=== PATIENT | female | born 1940 | race Caucasian/White ===

== ENCOUNTER → 2021-08-05 08:37 | Outpatient (BNVA) | payer MEDICARE, OTHER, SELFPAY | PROVIDERS: Visit Provider Psychiatry & Neurology Neurology | DX: R25.1 Tremor, unspecified (principal); R26.9 Unspecified abnormalities of gait and mobility | CPT/HCPCS: 99212 ==

== ENCOUNTER → 2022-06-15 11:37 | Outpatient (BNVA) | payer MEDICARE, OTHER, SELFPAY | PROVIDERS: PCP Internal Medicine; Visit Provider Psychiatry & Neurology Neurology | DX: G20 Parkinson's disease (principal); G62.9 Polyneuropathy, unspecified; Z96.651 Presence of right artificial knee joint | CPT/HCPCS: 99212 ==

== ENCOUNTER 2022-12-14 12:30 | Outpatient (AMB) | payer MEDICARE, OTHER, SELFPAY ==
--- NOTE | 2022-12-14 12:31 | MHC.OFFVIS ---
Intake Vital Signs 12/14/22 12:35 Height 5 ft 6 in Weight 169 lb 6 oz BMI 27.3 BP 126/80 Blood Pressure Location Rt brachial Position Sitting Pulse 81 Pulse Source Pulse Oximeter Pulse Oximetry (%) 98 Oxygen Delivery Method Room Air Intake Visit Reasons: f/u appt - Confirmed Intake Note: Patient presents for follow up appt. Allergies aspirin [From Percodan] Allergy (Verified 12/14/22 12:36) Agitated cephalexin [From Keflex] Allergy (Verified 12/14/22 12:36) Hives oxycodone [From Percodan] Allergy (Verified 12/14/22 12:36) Agitated sulfamethoxazole [From Bactrim] Allergy (Verified 12/14/22 12:36) Hives trimethoprim [From Bactrim] Allergy (Verified 12/14/22 12:36) Hives Medication List - Last Reconciled 12/14/22 by Neha Arriaza MD carbidopa-levodopa 25-100 mg (Sinemet) 1 tab PO BID cholecalciferol (vitamin D3) 125 mcg PO DAILY furosemide 20 mg PO DAILY losartan 50 mg PO DAILY melatonin 10 mg PO BEDTIME PRN omeprazole 40 mg PO DAILY tramadol 50 mg PO DAILY vitamin B complex (B Complex-Vitamin B12 tablet) 1 tab PO DAILY HPI HPI Comments History of Present Illness Details 82-year-old female comes for follow-up of her tremors. The tremors in her right hand does not affect her activities of daily living but more annoying. she has noticed a change in her handwriting. SHe had knee replacement on her Right October 12 2021 and still ahs issues. Now she is on tramadol which is helping.she also reports numbness in the right foot. Previous history-The tremors were mostly in the right UE postural and action. she also has history of chemo induced neuropathy which is well controlled but after she was started on Zoloft she noticed her tingling and numbness worsened in her feet and hands. She also has history of cervical spondylosis and lumbar spondylosis So she did not have any parkinsonian symptoms at that time so I wanted to follow-up with follow-up clinically. Today she says her right hand tremors are less intermittent and less intense but she complains mostly about her walking she has trouble getting off the chair getting up from a toilet she feels like Janis gandhi. He has difficulty doing her activities of daily living. She feels her neuropathy has worsened she denies any changes speech. She sleeps good. She still talks to a grief counselor. [facility] Medical History (Updated 06/15/22 @ 12:02 by Neha Arriaza MD) Arthritis Arthritis Cancer Cervical spondylosis Chemotherapy-induced neuropathy Depression GERD (gastroesophageal reflux disease) Heart disease HTN (hypertension) Lumbar spondylosis Surgical History History of rectal surgery Hx of appendectomy Hx of cholecystectomy Hx of colonoscopy Hx of gastric bypass Hx of resection of small bowel Hx of right knee surgery Family History (Updated 12/14/22 @ 12:40 by NIXON Harris) Mother Heart disease Varicose veins of calf Alzheimer disease Diverticulitis Father Heart disease Prostate cancer Social History Household Members: None Alcohol intake: current Alcohol intake frequency: does not drink Patient Tobacco Use Status: Former Tobacco user Physical Exam Vital Signs: Last Vital Signs Pulse 81 12/14/22 12:35 BP 126/80 12/14/22 12:35 Pulse Ox 98 12/14/22 12:35 Oxygen Delivery Method Room Air 12/14/22 12:35 BMI result Body Mass Index 27.3 Const Other: mild decreased blink and facial expression General: cooperative, healthy appearing and no acute distress Orientation/consciousness: patient oriented x3 HEENT Head: Yes normal to inspection and Yes normocephalic Eyes Pupils: Equal, round and reactive pupils present Neck Neck: Yes normal visual inspection and Yes full ROM Neuro Other: right hnad rest tremors 2 + cog wheel rigiidty - rUE FFM and foot taps decreased R>L Gait- decreased arm swing on right UE General: patient oriented x3 and no focal motor deficits Cranial nerves: Yes CN's II-XII intact bilaterally, Yes Equal, round and reactive pupils present and Yes Normal facial strength present Cognition (Neuro): normal cognition Gait exam (Neuro): Antalgic gait present Motor exam (neuro): 5/5 motor strength present throughout Deep tendon reflexes (DTR's): Right triceps reflex intensity grade: 1+, Left triceps reflex intensity grade: 1+, Rt Biceps (C5, C6): 1+, Left biceps reflex intensity grade: 1+, Right brachioradialis reflex intensity grade: 1+, Left brachioradialis reflex intensity grade: 1+, Right patellar reflex intensity grade: 1+ and Left patellar reflex intensity grade: 1+ Coordination: [id number] test normal Extrem Other: right knee swollen and in severe pain Assessment & Plan Assessment & Plan (1) Parkinson's disease: Code(s): G20 - Parkinson's disease Plan Discussed the diagnosis in detail Kennedy exercises discussed about calatrio I will trial her on sinemet 25/100 bid Medications: New carbidopa-levodopa 25-100 mg (Sinemet) 1 tab PO BID 60 tabs 2RF Coding Level of Care Code Est Pt Level 4 (18359) Diagnoses Parkinson's disease G20
[2022-12-14 12:35] VITALS: BP 126/80; PULSE 81; O2SAT 98; BMI 27.3
== END 2022-12-14 13:02 | disposition home or self-care (01) ==
PROVIDERS: Visit Provider Psychiatry & Neurology Neurology
DX: G20 Parkinson's disease (principal)
CPT/HCPCS: 99214

== ENCOUNTER → 2022-12-14 12:30 | Outpatient (BNVA) | payer MEDICARE, OTHER, SELFPAY | PROVIDERS: Visit Provider Psychiatry & Neurology Neurology | DX: G20 Parkinson's disease (principal); R20.0 Anesthesia of skin; Z96.651 Presence of right artificial knee joint | CPT/HCPCS: 99212 ==

== ENCOUNTER 2023-04-26 12:18 | Outpatient (AMB) | payer MEDICARE, OTHER, SELFPAY ==
--- NOTE | 2023-04-26 12:26 | MHC.OFFVIS ---
Intake Vital Signs 04/26/23 12:27 Height 5 ft 6 in Weight 151 lb 4 oz BMI 24.4 BP 126/72 Blood Pressure Location Rt brachial Position Sitting Respiration 16 Pulse 82 Pulse Source Pulse Oximeter Pulse Oximetry (%) 97 Oxygen Delivery Method Room Air Intake Visit Reasons: 4m follow up - Confirmed Intake Note: Pt presents to the office for a 4 month follow up for Parkinson's. Blocker Polishing Required: No Allergies aspirin [From Percodan] Allergy (Verified 04/26/23 12:26) Agitated cephalexin [From Keflex] Allergy (Verified 04/26/23 12:26) Hives oxycodone [From Percodan] Allergy (Verified 04/26/23 12:26) Agitated sulfamethoxazole [From Bactrim] Allergy (Verified 04/26/23 12:) Hives trimethoprim [From Bactrim] Allergy (Verified 04/26/23 12:) Hives Medication List - Last Reconciled 04/26/23 by Neha Arriaza MD carbidopa-levodopa 25-100 mg (Sinemet) 1 tab PO BID cholecalciferol (vitamin D3) 125 mcg PO DAILY furosemide 20 mg PO DAILY melatonin 10 mg PO BEDTIME PRN omeprazole 40 mg PO DAILY tramadol 50 mg PO DAILY vitamin B complex (B Complex-Vitamin B12 tablet) 1 tab PO DAILY HPI HPI Comments History of Present Illness Details 82-year-old female comes for follow-up of her tremors. The tremors in her right hand does not affect her activities of daily living but more annoying. she has noticed a change in her handwriting.she was taken off losartan as she has orthostatic hypotension.she sees Dr. Saldaña who is treating her OH. SHe had knee replacement on her Right October 12 2021 and still has issues. Now she is on tramadol which is helping. Previous history-The tremors were mostly in the right UE postural and action. she also has history of chemo induced neuropathy which is well controlled but after she was started on Zoloft she noticed her tingling and numbness worsened in her feet and hands. She also has history of cervical spondylosis and lumbar spondylosis So she did not have any parkinsonian symptoms at that time so I wanted to follow-up with follow-up clinically. Today she says her right hand tremors are less intermittent and less intense but she complains mostly about her walking she has trouble getting off the chair getting up from a toilet she feels like Janis gandhi. He has difficulty doing her activities of daily living. She feels her neuropathy has worsened she denies any changes speech. She sleeps good. She still talks to a grief counselor. [facility] Medical History Heart disease Depression GERD (gastroesophageal reflux disease) Arthritis HTN (hypertension) Lumbar spondylosis Cervical spondylosis Arthritis Chemotherapy-induced neuropathy Cancer Surgical History History of rectal surgery Hx of right knee surgery Hx of gastric bypass Hx of colonoscopy Hx of resection of small bowel Hx of cholecystectomy Hx of appendectomy Family History Mother Heart disease Varicose veins of calf Alzheimer disease Diverticulitis Father Heart disease Prostate cancer Social History Household Members: None Alcohol intake: current Alcohol intake frequency: does not drink Patient Tobacco Use Status: Former Tobacco user Physical Exam Vital Signs: Last Vital Signs Pulse 82 04/26/23 12:27 Resp 16 04/26/23 12:27 BP 126/72 04/26/23 12:27 Pulse Ox 97 04/26/23 12:27 Oxygen Delivery Method Room Air 04/26/23 12:27 BMI result Body Mass Index 24.4 Const Other: mild decreased blink and facial expression General: cooperative, healthy appearing and no acute distress Orientation/consciousness: patient oriented x3 HEENT Head: Yes normal to inspection and Yes normocephalic Eyes Pupils: Equal, round and reactive pupils present Neck Neck: Yes normal visual inspection and Yes full ROM Neuro Other: right hand rest tremors Normal tone FFM and foot taps decreased R>L- better than last visit Gait- decreased arm swing on right UE General: patient oriented x3 and no focal motor deficits Cranial nerves: Yes CN's II-XII intact bilaterally, Yes Equal, round and reactive pupils present and Yes Normal facial strength present Cognition (Neuro): normal cognition Gait exam (Neuro): Antalgic gait present Motor exam (neuro): 5/5 motor strength present throughout Deep tendon reflexes (DTR's): Right triceps reflex intensity grade: 1+, Left triceps reflex intensity grade: 1+, Rt Biceps (C5, C6): 1+, Left biceps reflex intensity grade: 1+, Right brachioradialis reflex intensity grade: 1+, Left brachioradialis reflex intensity grade: 1+, Right patellar reflex intensity grade: 1+ and Left patellar reflex intensity grade: 1+ Coordination: [id number] test normal Extrem Other: right knee swollen and in severe pain Assessment & Plan Assessment & Plan (1) Parkinson's disease: Code(s): G20 - Parkinson's disease Plan Discussed the diagnosis in detail Kenndey exercises discussed about calatrio sinemet 25/100 bid - will increase after her OH is stabilized Trial trihexyphenidyl 1mg bid consider [facility] for PH- patient is seeing Dr. Saldaña who will trial her on meds Medications: New trihexyphenidyl give with food (meal/snack) 1 mg (1/2 x 2 mg) PO BID 30 tabs 0RF Coding Level of Care Code Est Pt Level 4 (26612) Diagnoses Parkinson's disease G20
[2023-04-26 12:27] VITALS: BP 126/72; PULSE 82; RESP 16; O2SAT 97; BMI 24.4
== END 2023-04-26 13:01 | disposition home or self-care (01) ==
PROVIDERS: PCP Internal Medicine; Visit Provider Psychiatry & Neurology Neurology
DX: G20.A1 Parkinson's disease without dyskinesia, without mention of fluctuations (principal)
CPT/HCPCS: 99214

== ENCOUNTER → 2023-04-26 12:18 | Outpatient (BNVA) | payer MEDICARE, OTHER, SELFPAY | PROVIDERS: PCP Internal Medicine; Visit Provider Psychiatry & Neurology Neurology | DX: G20.A1 Parkinson's disease without dyskinesia, without mention of fluctuations (principal) | CPT/HCPCS: 99212 ==

== ENCOUNTER 2023-05-24 15:22 | Outpatient (AMB) | payer MEDICARE, OTHER, SELFPAY ==
--- NOTE | 2023-05-24 15:22 | A.OFFVIS_ITS ---
Intake Intake Visit Reasons: 1M f/u for Parkinson's Intake Note: Pt participates in telehealth (tel [phone]) visit for 1 month follow up for med adjustment for Parkinson's. She reports she started med increase x1.5 week and was doing well on it, but went back to original dosing after pharmacy refused to refill her script with new dose. Diving Supervisor Required: No Allergies sertraline Allergy (Intermediate, Verified 05/24/23 15:23) Anxiety aspirin [From Percodan] Allergy (Verified 04/26/23 12:26) Agitated cephalexin [From Keflex] Allergy (Verified 04/26/23 12:26) Hives oxycodone [From Percodan] Allergy (Verified 04/26/23 12:26) Agitated sulfamethoxazole [From Bactrim] Allergy (Verified 04/26/23 12:26) Hives trimethoprim [From Bactrim] Allergy (Verified 04/26/23 12:26) Hives Medication List - Last Reconciled 05/24/23 by Neha Arriaza MD carbidopa-levodopa 25-100 mg (Sinemet) 1 tab PO QID cholecalciferol (vitamin D3) 125 mcg PO DAILY furosemide 20 mg PO DAILY melatonin 10 mg PO BEDTIME PRN omeprazole 40 mg PO DAILY tramadol 50 mg PO DAILY trihexyphenidyl 1 mg (1/2 x 2 mg) PO BID vitamin B complex (B Complex-Vitamin B12 tablet) 1 tab PO DAILY HPI HPI Comments History of Present Illness Details 82-year-old female calls for follow up of tremor predominant parkinsons she is doing good on sinemet 25/100 qid Trihexyphenidyl 1mg bid SHe was started on midodrine 2.[address] Saldaña which has helped her dizziness. Previous history-The tremors were mostly in the right UE postural and action. she also has history of chemo induced neuropathy which is well controlled but after she was started on Zoloft she noticed her tingling and numbness worsened in her feet and hands. She also has history of cervical spondylosis and lumbar spondylosis So she did not have any parkinsonian symptoms at that time so I wanted to follow-up with follow-up clinically. Today she says her right hand tremors are less intermittent and less intense but she complains mostly about her walking she has trouble getting off the chair getting up from a toilet she feels like Janis gandhi. He has difficulty doing her activities of daily living. She feels her neuropathy has worsened she denies any changes speech. She sleeps good. She still talks to a grief counselor. [facility] Medical History (Updated 05/24/23 @ 16:01 by Neha Arriaza MD) Parkinson's disease with neurogenic orthostatic hypotension Heart disease Depression GERD (gastroesophageal reflux disease) Arthritis HTN (hypertension) Lumbar spondylosis Cervical spondylosis Arthritis Chemotherapy-induced neuropathy Cancer Surgical History History of rectal surgery Hx of right knee surgery Hx of gastric bypass Hx of colonoscopy Hx of resection of small bowel Hx of cholecystectomy Hx of appendectomy Family History Mother Heart disease Varicose veins of calf Alzheimer disease Diverticulitis Father Heart disease Prostate cancer Social History Household Members: None Alcohol intake: current Alcohol intake frequency: does not drink Patient Tobacco Use Status: Former Tobacco user Physical Exam Const General: cooperative Orientation/consciousness: patient oriented x3 Neuro Other: Mood stable Speech - normal General: patient oriented x3 Cognition (Neuro): normal cognition Assessment & Plan Assessment & Plan (1) Parkinson's disease with neurogenic orthostatic hypotension: Code(s): G90.3 - Multi-system degeneration of the autonomic nervous system Plan sinemet 25/100 qid - will increase after her OH is stabilized trihexyphenidyl 1mg bid continue midodrine 2.5mg tid Medications: New midodrine do not give last dose of day after 6PM or within 4 hrs of bedtime 2.5 mg PO TID Changed From carbidopa-levodopa 25-100 mg (Sinemet) 1 tab PO BID 60 tabs 6RF To carbidopa-levodopa 25-100 mg (Sinemet) 1 tab PO QID 120 tabs 6RF Refilled trihexyphenidyl give with food (meal/snack) 1 mg (1/2 x 2 mg) PO BID 30 tabs 4RF carbidopa-levodopa 25-100 mg (Sinemet) 1 tab PO QID 120 tabs 6RF trihexyphenidyl give with food (meal/snack) 1 mg (1/2 x 2 mg) PO BID 30 tabs 4RF Telehealth Telehealth Location of provider rendering services: practice address Location of patient: address on file Patient Identification confirmed using: Name, : Yes Telehealth method: voice only Patient verbally consented to treatment: Yes Patient verbally consented to billing insurance company: Yes Patient informed of any privacy concerns related to visit: Yes Coding Level of Care Code Tele Est Pt Level 4 (98634) Diagnoses Parkinson's disease with neurogenic orthostatic hypotension G90.3 Time Spent (min) 16
== END 2023-05-24 16:16 | disposition home or self-care (01) ==
LOC: HO.HSMS 15:22
PROVIDERS: PCP Internal Medicine; Visit Provider Psychiatry & Neurology Neurology
DX: G90.3 Multi-system degeneration of the autonomic nervous system (principal)
CPT/HCPCS: 99442

== ENCOUNTER → 2023-05-24 15:22 | Outpatient (BNVA) | payer MEDICARE, OTHER, SELFPAY | PROVIDERS: PCP Internal Medicine; Visit Provider Psychiatry & Neurology Neurology ==

== ENCOUNTER 2023-08-30 15:34 | Outpatient (AMB) | payer MEDICARE, OTHER, SELFPAY ==
--- NOTE | 2023-08-30 15:36 | MHC.OFFVIS ---
Vital Signs 08/30/23 15:38 Height 5 ft 6 in Weight 149 lb BMI 24.0 BP 112/60 Blood Pressure Location Rt brachial Position Sitting Pulse 93 Pulse Source Pulse Oximeter Pulse Oximetry (%) 98 Oxygen Delivery Method Room Air Intake Visit Reasons: 4 mo f/u- Parkinsons-CONF Intake Note: Patient presents for a 3 month fu- Parkinson's Potato Seed Cutter Required: No Accompanied by: Self / Same As Patient Allergies sertraline Allergy (Intermediate, Verified 08/30/23 15:41) Anxiety aspirin [From Percodan] Allergy (Verified 08/30/23 15:41) Agitated cephalexin [From Keflex] Allergy (Verified 08/30/23 15:41) Hives oxycodone [From Percodan] Allergy (Verified 08/30/23 15:41) Agitated sulfamethoxazole [From Bactrim] Allergy (Verified 08/30/23 15:41) Hives trimethoprim [From Bactrim] Allergy (Verified 08/30/23 15:41) Hives Medication List - Last Reconciled 08/30/23 by Neha Arriaza MD carbidopa-levodopa 25-100 mg (Sinemet) 1 tab PO QID cholecalciferol (vitamin D3) 125 mcg PO DAILY furosemide 20 mg PO DAILY PRN melatonin 10 mg PO BEDTIME PRN midodrine 2.5 mg PO TID omeprazole 40 mg PO DAILY tramadol 50 mg PO DAILY trihexyphenidyl 1 mg (1/2 x 2 mg) PO BID vitamin B complex (B Complex-Vitamin B12 tablet) 1 tab PO DAILY HPI Comments Details: 83-year-old female calls for follow up of tremor predominant parkinsons she is doing OK on sinemet 25/100 qid Trihexyphenidyl 1mg bid but still has tremors . SHe was started on midodrine 2.[address] Saldaña which has helped her dizziness- he stopped her BP medication. Previous history-The tremors were mostly in the right UE postural and action. she also has history of chemo induced neuropathy which is well controlled but after she was started on Zoloft she noticed her tingling and numbness worsened in her feet and hands. She also has history of cervical spondylosis and lumbar spondylosis So she did not have any parkinsonian symptoms at that time so I wanted to follow-up with follow-up clinically. Today she says her right hand tremors are less intermittent and less intense but she complains mostly about her walking she has trouble getting off the chair getting up from a toilet she feels like Janis gandhi. He has difficulty doing her activities of daily living. She feels her neuropathy has worsened she denies any changes speech. She sleeps good. She still talks to a grief counselor. [facility] Medical History Parkinson's disease with neurogenic orthostatic hypotension Heart disease Depression GERD (gastroesophageal reflux disease) Arthritis HTN (hypertension) Lumbar spondylosis Cervical spondylosis Arthritis Chemotherapy-induced neuropathy Cancer Surgical History History of rectal surgery Hx of right knee surgery Hx of gastric bypass Hx of colonoscopy Hx of resection of small bowel Hx of cholecystectomy Hx of appendectomy Family History Mother Heart disease Varicose veins of calf Alzheimer disease Diverticulitis Father Heart disease Prostate cancer Social History Household Members: None Alcohol intake: current Alcohol intake frequency: does not drink Patient Tobacco Use Status: Former Tobacco user Physical Exam Vital Signs: Last Vital Signs Pulse 93 08/30/23 15:38 BP 112/60 08/30/23 15:38 Pulse Ox 98 08/30/23 15:38 Oxygen Delivery Method Room Air 08/30/23 15:38 BMI result Body Mass Index 24.0 Const Other: mild decreased blink and facial expression General: cooperative, healthy appearing and no acute distress Orientation/consciousness: patient oriented x3 HEENT Head: Yes normal to inspection and Yes normocephalic Eyes Pupils: Equal, round and reactive pupils present Neck Neck: Yes normal visual inspection and Yes full ROM Neuro Other: right hand rest tremors Normal tone FFM and foot taps decreased R>L- better than last visit Gait- decreased arm swing on right UE General: patient oriented x3 and no focal motor deficits Cranial nerves: Yes CN's II-XII intact bilaterally, Yes Equal, round and reactive pupils present and Yes Normal facial strength present Cognition (Neuro): normal cognition Gait exam (Neuro): Antalgic gait present Motor exam (neuro): 5/5 motor strength present throughout Coordination: [id number] test normal Extrem Other: right knee swollen and in severe pain Assessment & Plan Assessment & Plan (1) Parkinson's disease with neurogenic orthostatic hypotension: Code(s): G90.3 - Multi-system degeneration of the autonomic nervous system Category: Medical Plan sinemet 25/100 qid - will increase after her OH is stabilized trihexyphenidyl 1mg bid continue midodrine 2.5mg tid I will refer her to Dr. Alfreda Dee MD,PhD for DBS Orders: Referrals Neurosurgery Referral G90.3 - Multi-system degeneration of the autonomic nervous system Medications: New midodrine do not give last dose of day after 6PM or within 4 hrs of bedtime 2.5 mg PO TID
[2023-08-30 15:38] VITALS: BP 112/60; PULSE 93; O2SAT 98; BMI 24.0
== END 2023-08-30 16:10 | disposition home or self-care (01) ==
LOC: HO.HSMS 15:35
PROVIDERS: PCP Internal Medicine; Visit Provider Psychiatry & Neurology Neurology
DX: G90.3 Multi-system degeneration of the autonomic nervous system (principal)
CPT/HCPCS: 99214

== ENCOUNTER → 2023-08-30 15:35 | Outpatient (BNVA) | payer MEDICARE, OTHER, SELFPAY | PROVIDERS: PCP Internal Medicine; Visit Provider Psychiatry & Neurology Neurology | DX: G90.3 Multi-system degeneration of the autonomic nervous system (principal) | CPT/HCPCS: 99212 ==

== ENCOUNTER 2024-03-21 10:52 | Outpatient (AMB) | payer MEDICARE, OTHER, SELFPAY ==
--- NOTE | 2024-03-21 11:06 | A.OFFVIS_ITS ---
Vital Signs 03/21/24 11:07 Height 5 ft 6 in Weight 149 lb BMI 24.0 BP 124/82 Blood Pressure Location Rt brachial Position Sitting Intake Visit Reasons: Follow Up Intake Note: Patient presents for follow up Allergies sertraline Allergy (Intermediate, Verified 03/21/24 11:09) Anxiety aspirin [From Percodan] Allergy (Verified 03/21/24 11:09) Agitated cephalexin [From Keflex] Allergy (Verified 03/21/24 11:09) Hives oxycodone [From Percodan] Allergy (Verified 03/21/24 11:09) Agitated sulfamethoxazole [From Bactrim] Allergy (Verified 03/21/24 11:09) Hives trimethoprim [From Bactrim] Allergy (Verified 03/21/24 11:09) Hives HPI Comments Details: 83 year old female with Orthostatic hypertension presents for a follow up, BP in clinic today is 124/82. She stopped taking her BP meds, she is taking Midodrine 2.5mg PO TID. She is taking the CD/LD- 25/100mg PO QID. She is aware of the BP dropping when she stands, and takes her time when standing she counts to 10 prior to taking a step to walk. She has not had any falls, uses her walker to go out and has an at home roller- aide. She understand the BP rises when she is sleeping, she takes the Midodrine as directed and she is more comfortable controlling with her BP changes now. Her mood is good, she is feels supported by family members, cooks, cleans and does laundry and completes all activities as she is able to tolerate with daughter and grand-daughther's help. She uses edible MJ Gummies if she needs them to sleep, bedtime is 10-12pm and awakes at 6-8 am. She makes 3-4 trips to the bathroom during the night. Takes natures made Gummies, (L-theanine, Jennifer, and Melatonin) takes 1/2 of it and sleeps within 20 min. She usually takes tylenol for the arthritis pain 650mg daily, R. prosthetic knee. Headaches only when the kids try to help with something, and stress her out. Mood is good most days, but can be stubborn, eats small, frequent meals due to the Gastric issues. She takes Vitamin C 500mg, Vitamin D, and B-complex, along with cranberry pills to prevent UTIs. She drives short distances. She bikes regularly, as tolerated, low intensity and resistance band exercises. Denies mental difficulties, dizziness, nausea, vertigo, vomiting. She has a surgical procedure schedules in May 2024 to remove the Hematoma, cystic- growth in her R. hand, 4th digit, metacarpal encompassing a vein. R. Knee was replaced years ago and she never felt it was the same. R>L right is larger than the Left. narrow gait, off balance leans to the left, R. knee replacement, [facility] Medical History Parkinson's disease with neurogenic orthostatic hypotension Heart disease Depression GERD (gastroesophageal reflux disease) Arthritis HTN (hypertension) Lumbar spondylosis Cervical spondylosis Arthritis Chemotherapy-induced neuropathy Cancer Surgical History History of rectal surgery Hx of right knee surgery Hx of gastric bypass Hx of colonoscopy Hx of resection of small bowel Hx of cholecystectomy Hx of appendectomy Family History Mother Heart disease Varicose veins of calf Alzheimer disease Diverticulitis Father Heart disease Prostate cancer Social History Household Members: None Alcohol intake: current Alcohol intake frequency: does not drink Patient Tobacco Use Status: Former Tobacco user Review of Systems Const All systems reviewed & are unremarkable except as noted in HPI and below Physical Exam Vital Signs: Last Vital Signs BP 124/82 03/21/24 11:07 BMI result Body Mass Index 24.0 Const General: cooperative, comfortable and no acute distress Nutritional Appearance: average body habitus Orientation/consciousness: patient oriented x3 Limitations: ambulation with walker HEENT Face and sinus: Yes face symmetric Eyes Pupils: Equal, round and reactive pupils present Neck Neck: Yes normal visual inspection, Yes full ROM (limited Extension on ROM.) and Yes supple Resp Effort & Inspection: normal respiratory effort and able to speak in complete sentences Neuro General: patient oriented x3, moves all extremities and CN's II-XI intact bilaterally Cranial nerves: Yes CN's II-XII intact bilaterally, Yes Facial sensation intact/muscles of mastication intact, Yes Equal, round and reactive pupils present, Yes Normal accommodation reflex present, Yes Normal facial strength present, Yes Midline tongue present, Yes Ability to bilaterally rotate head present and Yes Ability to bilaterally elevate shoulders present Cognition (Neuro): normal cognition Gait exam (Neuro): Other gait observations present (Narrow gait, off balance leaning to the left.) Motor exam (neuro): Normal motor muscle tone present throughout (weak muscle tone.), Abnormal motor strength present (R. hand tremor.) and Tremors during motor activity present Deep tendon reflexes (DTR's): Right triceps reflex intensity grade: 2+, Left triceps reflex intensity grade: 2+, Rt Biceps (C5, C6): 2+, Left biceps reflex intensity grade: 2+, Right brachioradialis reflex intensity grade: 2+, Left brachioradialis reflex intensity grade: 2+, Right patellar reflex intensity grade: 2+ and Left patellar reflex intensity grade: 2+ Coordination: [id number] test normal, rapid alternating movements of the distal upper extremity normal and rapid alternating movements of the distal lower extremity normal Psych Appearance: grossly normal Speech and movement: Normal speech and movement present Affect: normal affect Attitude: cooperative Thought process: Normal thought process present Thought content: Normal thought content present Insight: Good insight present (Psych) Judgement: Good judgement present (Psych) Assessment & Plan Assessment & Plan (1) Parkinson's disease with neurogenic orthostatic hypotension: Code(s): G90.3 - Multi-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 Continue taking the Sinemet 25-100mg QID per directions on an empty stomach with a cracker or a cookie is fine, no proteins for one hour before or after taking the Sinemet. Follow up in 2 months for Neurogenic Orhtostatic Hypertension, or if you have any concerns call the office. Coding Level of Care Code Est Pt Level 4 (94796) Complex EM visit Add On G2211 Diagnoses Parkinson's disease with neurogenic orthostatic hypotension G90.3
[2024-03-21 11:07] VITALS: BP 124/82; BMI 24.0
== END 2024-03-21 11:49 | disposition home or self-care (01) ==
PROVIDERS: PCP Internal Medicine; Visit Provider Psychiatry & Neurology Neurology
DX: G90.3 Multi-system degeneration of the autonomic nervous system (principal)
CPT/HCPCS: 99214; G2211

== ENCOUNTER → 2024-03-21 10:52 | Outpatient (BNVA) | payer MEDICARE, OTHER, SELFPAY | PROVIDERS: PCP Internal Medicine; Visit Provider Psychiatry & Neurology Neurology | DX: G90.3 Multi-system degeneration of the autonomic nervous system (principal) | CPT/HCPCS: 99212 ==

== ENCOUNTER 2024-05-25 10:19 | Outpatient (AMB) | payer MEDICARE, OTHER, SELFPAY ==
--- NOTE | 2024-05-25 10:19 | MHC.OFFVIS ---
Intake Visit Reasons: [phone], Follow Up Intake Note: patient presents for follow up Allergies sertraline Allergy (Intermediate, Verified 05/25/24 10:20) Anxiety aspirin [From Percodan] Allergy (Verified 05/25/24 10:20) Agitated cephalexin [From Keflex] Allergy (Verified 05/25/24 10:20) Hives oxycodone [From Percodan] Allergy (Verified 05/25/24 10:20) Agitated sulfamethoxazole [From Bactrim] Allergy (Verified 05/25/24 10:20) Hives trimethoprim [From Bactrim] Allergy (Verified 05/25/24 10:20) Hives Medication List - Last Reconciled 05/25/24 by Neha Arriaza MD carbidopa-levodopa 25-100 mg (Sinemet) 1 tab PO QID cholecalciferol (vitamin D3) 125 mcg PO DAILY furosemide 20 mg PO DAILY PRN melatonin 10 mg PO BEDTIME PRN midodrine 2.5 mg PO TID omeprazole 40 mg PO DAILY tramadol 50 mg PO DAILY trihexyphenidyl 1 mg (1/2 x 2 mg) PO BID vitamin B complex (B Complex-Vitamin B12 tablet) 1 tab PO DAILY HPI Comments Details: 83 year old female with Orthostatic hypertension calls for a follow up, - Her daughters Astrid , Eunice and her son Vasile are present during this visit.she reports increase in tremors in her right UE and her right foot is freezing.the tremors wakes her up from sleep. Her daughter describes an episode at night - when she had increased tremors, breathing hard.she denies any dreams she takes edible gummy at bedtime on and off. she has a gastric bypass pouch since 2002 - she has episodes of hypoglycemia( 40s) - was suggested to increase her glucose slowly . she has not checked her BP during these episodes.she feels better after she has a bowl of cereal . Family is concerned about her short term memory issues. She stopped taking her BP meds, she is taking Midodrine 2.5mg PO TID. She is taking the CD/LD- 25/100mg PO QID. She is aware of the BP dropping when she stands, and takes her time when standing she counts to 10 prior to taking a step to walk. She has not had any falls, uses her walker to go out and has an at home roller- aide. She understand the BP rises when she is sleeping, she takes the Midodrine as directed and she is more comfortable controlling with her BP changes now. Her mood is good, she is feels supported by family members, cooks, cleans and does laundry and completes all activities as she is able to tolerate with daughter and grand-daughter's help. She uses edible MJ Gummies if she needs them to sleep, bedtime is 10-12pm and awakes at 6-8 am. She makes 3-4 trips to the bathroom during the night. Takes natures made Gummies, (L-theanine, Jennifer, and Melatonin) takes 1/2 of it and sleeps within 20 min. She usually takes tylenol for the arthritis pain 650mg daily, R. prosthetic knee. Headaches only when the kids try to help with something, and stress her out. Mood is good most days, but can be stubborn, eats small, frequent meals due to the Gastric issues. She takes Vitamin C 500mg, Vitamin D, and B-complex, along with cranberry pills to prevent UTIs. She does not drive Denies mental difficulties, dizziness, nausea, vertigo, vomiting. She has a surgical procedure schedules in May 2024 to remove the Hematoma, cystic- growth in her R. hand, 4th digit, metacarpal encompassing a vein. R. Knee was replaced years ago and she never felt it was the same. R>L right is larger than the Left. narrow gait, off balance leans to the left, R. knee replacement, [facility] Medical History Parkinson's disease with neurogenic orthostatic hypotension Heart disease Depression GERD (gastroesophageal reflux disease) Arthritis HTN (hypertension) Lumbar spondylosis Cervical spondylosis Arthritis Chemotherapy-induced neuropathy Cancer Surgical History History of rectal surgery Hx of right knee surgery Hx of gastric bypass Hx of colonoscopy Hx of resection of small bowel Hx of cholecystectomy Hx of appendectomy Family History Mother Heart disease Varicose veins of calf Alzheimer disease Diverticulitis Father Heart disease Prostate cancer Social History Household Members: None Alcohol intake: current Alcohol intake frequency: does not drink Patient Tobacco Use Status: Former Tobacco user Physical Exam Const General: cooperative Orientation/consciousness: patient oriented x3 Neuro General: patient oriented x3 Telehealth Telehealth Telehealth Platform: Telephone Location of provider rendering services: practice address Location of patient: address on file Patient Identification confirmed using: Name, : Yes Telehealth method: voice only Patient verbally consented to treatment: Yes Patient verbally consented to billing insurance company: Yes Patient informed of any privacy concerns related to visit: Yes Minutes spent on Phone/Video with Pt.: 23 Assessment & Plan Assessment & Plan (1) Parkinson's disease with neurogenic orthostatic hypotension: Code(s): G90.3 - Multi-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 Continue taking the Sinemet 25-100mg QID per directions on an empty stomach with a cracker or a cookie is fine, no proteins for one hour before or after taking the Sinemet. 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
--- OUTSIDE RECORDS SUMMARY | 2024-05-25 12:20 | XMS_ITS ---
Author Name [facility] Organization Unknown History of Medication Use Medication Directions Dispensed Refills Start Date End Date Stat us traMADol HCl 50 MG Oral Tablet traMADol HCl 50 MG Oral Tablet QTY: 0 tablet Days: 0 Refills: 0 Written: 03/04/23 Patient Instructions: 03/06/2023 active Tylenol Oral Tablet Tylenol Oral Tablet QTY: 0 tablet Days: 0 Refills: 0 Written: 03/04/23 Patient Instructions: 03/06/2023 active Losartan Potassium 25 MG Oral Tablet Losartan Potassium 25 MG Oral Tablet QTY: 0 tablet Days: 0 Refills: 0 Written: 03/04/23 Patient Instructions: 03/06/2023 active Cyclobenzaprine HCl 10 MG Oral Tablet Cyclobenzaprine HCl 10 MG Oral Tablet QTY: 0 tablet Days: 0 Refills: 0 Written: 03/04/23 Patient Instructions: 03/06/2023 active Omeprazole 40 MG Oral Capsule Delayed Release Omeprazole 40 MG Oral Capsule Delayed Release QTY: 0 capsule Days: 0 Refills: 0 Written: 03/04/23 Patient Instructions: 03/06/2023 active Carbidopa-Levodopa 10-100 MG Oral Tablet Carbidopa-Levodopa 10-100 MG Oral Tablet QTY: 0 tablet Days: 0 Refills: 0 Written: 03/04/23 Patient Instructions: 03/06/2023 active Allergies Allergen Reaction Severity Comment Documented Date Source Statu s BACTRIM [facility] SERTRALINE HCL [facility] Problems Problem Status Onset Date Problem Type Date of Resoluti on Source Hypertensive disorder, systemic arterial (disorder) active 2023-03-04 ProblemAct [facility] Glaucoma (disorder) active 2023-03-04 ProblemAct [facility] Arthritis (disorder) active 2023-03-04 ProblemAct [facility] Cataract (disorder) active 2023-03-04 ProblemAct [facility] Pulmonary embolism (disorder) active 2023-03-04 ProblemAct [facility] Generalized anxiety disorder (disorder) active 2023-03-04 ProblemAct [facility] Acute myocardial infarction (disorder) active 2023-03-04 ProblemAct [facility] Heart disease (disorder) active 2023-03-04 ProblemAct [facility] MALIGNANT JESSICA COLON NOS active 2023-03-04 ProblemAct [facility] Depressive disorder (disorder) active 2023-03-04 ProblemAct [facility]
== END 2024-05-25 12:13 | disposition home or self-care (01) ==
LOC: HO.HSMS 10:19
PROVIDERS: PCP Internal Medicine; Visit Provider Psychiatry & Neurology Neurology
DX: G90.3 Multi-system degeneration of the autonomic nervous system (principal)
CPT/HCPCS: 98016

== ENCOUNTER → 2024-05-25 10:19 | Outpatient (BNVA) | payer MEDICARE, OTHER, SELFPAY | PROVIDERS: PCP Internal Medicine; Visit Provider Psychiatry & Neurology Neurology ==

== ENCOUNTER 2024-10-31 14:03 | Outpatient (AMB) | payer MEDICARE, OTHER, SELFPAY ==
[2024-10-31 14:06] VITALS: BP 100/82; BMI 24.2
--- NOTE | 2024-10-31 14:06 | A.OFFVIS_ITS ---
Vital Signs 10/31/24 14:06 Height 5 ft 6 in Weight 150 lb BMI 24.2 BP 100/82 Blood Pressure Location Rt brachial Position Sitting Intake Visit Reasons: Follow Up Intake Note: Patient presents for follow up med trial mirtazapine Allergies sertraline Allergy (Intermediate, Verified 10/31/24 14:08) Anxiety aspirin (From Percodan) Allergy (Verified 10/31/24 14:08) Agitated cephalexin (From Keflex) Allergy (Verified 10/31/24 14:08) Hives oxycodone (From Percodan) Allergy (Verified 10/31/24 14:08) Agitated sulfamethoxazole (From Bactrim) Allergy (Verified 10/31/24 14:08) Hives trimethoprim (From Bactrim) Allergy (Verified 10/31/24 14:08) Hives Medication List - Last Reconciled 10/31/24 by Neha Arriaza MD carbidopa-levodopa 25-100 mg (Sinemet) 1 tab PO QID cholecalciferol (vitamin D3) 125 mcg PO DAILY furosemide 20 mg PO DAILY PRN melatonin 10 mg PO BEDTIME PRN midodrine 2.5 mg PO TID mirtazapine 7.5 mg PO BEDTIME omeprazole 40 mg PO DAILY tramadol 50 mg PO DAILY trihexyphenidyl 1 mg (1/2 x 2 mg) PO BID vitamin B complex (B Complex-Vitamin B12 tablet) 1 tab PO DAILY HPI Comments Details: 83 year old female with Parkinsons disease comes for a follow up, - Her grand daughter Hope accompanies her today she is sleeping better with Mirtazapine 7,5 mg qhs and mood is better. Her tremors are better. she has a gastric bypass pouch since 2002 - she has episodes of hypoglycemia( 40s) - was suggested to increase her glucose slowly . she has not checked her BP during these episodes.she feels better after she has a bowl of cereal . Family is concerned about her short term memory issues. She stopped taking her BP meds, she is taking Midodrine 2.5mg PO TID. She is taking the CD/LD- 25/100mg PO QID. Her mood is good, she is feels supported by family members, cooks, cleans and does laundry and completes all activities as she is able to tolerate with daughter and grand-daughter's help. She usually takes tylenol for the arthritis pain 650mg daily, R. prosthetic knee. She does not drive No falls.she is independant in all her ADLs. [facility] Medical History Parkinson's disease with neurogenic orthostatic hypotension Heart disease Depression GERD (gastroesophageal reflux disease) Arthritis HTN (hypertension) Lumbar spondylosis Cervical spondylosis Arthritis Chemotherapy-induced neuropathy Cancer Surgical History History of rectal surgery Hx of right knee surgery Hx of gastric bypass Hx of colonoscopy Hx of resection of small bowel Hx of cholecystectomy Hx of appendectomy Family History Mother Heart disease Varicose veins of calf Alzheimer disease Diverticulitis Father Heart disease Prostate cancer Social History Household Members: None Alcohol intake: current Alcohol intake frequency: does not drink Patient Tobacco Use Status: Former Tobacco user Physical Exam Vital Signs: Last Vital Signs BP 100/82 10/31/24 14:06 BMI result Body Mass Index 24.2 HEENT Face and sinus: Yes face symmetric Eyes Pupils: Equal, round and reactive pupils present Neck Neck: Yes normal visual inspection, Yes full ROM (limited Extension on ROM.) and Yes supple Resp Effort & Inspection: normal respiratory effort and able to speak in complete sentences Neuro Other: right UE rets tremors - moderate amplitude gait - mild slowness- decreased arm swing R>L General: moves all extremities and CN's II-XI intact bilaterally Cranial nerves: Yes CN's II-XII intact bilaterally, Yes Facial sensation intact/muscles of mastication intact, Yes Equal, round and reactive pupils present, Yes Normal accommodation reflex present, Yes Normal facial strength present, Yes Midline tongue present, Yes Ability to bilaterally rotate head present and Yes Ability to bilaterally elevate shoulders present Cognition (Neuro): normal cognition Gait exam (Neuro): Other gait observations present (Narrow gait, off balance leaning to the left.) Motor exam (neuro): Normal motor muscle tone present throughout (weak muscle tone.), Abnormal motor strength present (R. hand tremor.) and Tremors during motor activity present Coordination: [id number] test normal, rapid alternating movements of the distal upper extremity normal and rapid alternating movements of the distal lower extremity normal Psych Appearance: grossly normal Speech and movement: Normal speech and movement present Affect: normal affect Attitude: cooperative Thought process: Normal thought process present Thought content: Normal thought content present Insight: Good insight present (Psych) Judgement: Good judgement present (Psych) Assessment & Plan Assessment & Plan (1) Parkinson's disease with neurogenic orthostatic hypotension: Code(s): G90.3 - Multi-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 Continue taking the Sinemet 25-100mg QID per directions on an empty stomach with a cracker or a cookie is fine, no proteins for one hour before or after taking the Sinemet. Trihexyphenidyl 1/2 tab bid mirtazepine 7.5 mg qhs for sleep and depression Contact [facility] for [employer] DESIGN[employer] services Coding Level of Care Code Est Pt Level 4 (57795) Complex EM visit Add On G2211 Diagnoses Parkinson's disease with neurogenic orthostatic hypotension G90.3
--- OUTSIDE RECORDS SUMMARY | 2024-10-31 17:08 | XMS_ITS | Clinical Summary ---
Author Organization [facility] Address [address] [place] [address] Phone Care Team Providers Care Yarn Dumper Name Role Phone Hyacinth Bashir MD Primary Care Provider [phone] Allergies Active Allergy Reactions Criticality Noted Date Comments Cephalexin High 02/20/2021 Other Reaction(s): Hives/Urticaria Nsaids (Non-Steroidal Anti-Inflammatory Drug) GI intolerance 10/07/2022 Sertraline Medium 11/08/2020 Tremors, fatigue, insomnia, neuropathy Sulfamethoxazole-Trimeth oprim High 02/20/2021 Other Reaction(s): Hives/Urticaria Medications furosemide (LASIX) 20 mg tablet TAKE 1 TABLET BY MOUTH EVERY DAY 90 tablet 3 4 Active omeprazole (PriLOSEC) [address] capsule TAKE 1 CAPSULE BY MOUTH EVERY DAY 90 capsule 1 4 Active carbidopa-levodo pa (SINEMET) 25-100 mg per tablet Take 1 Tablet by mouth 4 times daily. 4 Active omeprazole (PriLOSEC) [address] capsule Take 1 capsule (40 mg total) by mouth 1 (one) time each day. 4 Active UNABLE TO FIND Take by mouth 1 (one) time each day. Psyllium 55.6 % Powder Active traMADoL (ULTRAM) 50 mg tablet Take 1 Tablet by mouth 2 times daily as needed for Pain. 3 Active UNABLE TO FIND [place]-3 Krill Oil 1000 MG Cap, Take 1,000 mg by mouth daily. Active acetaminophen (TYLENOL) 325 mg tablet Take 2 tablets (650 mg total) by mouth 1 (one) time each day. 2 Active cholecalciferol (VITAMIN D-3) 5,000 Units tablet Take 125 mcg by mouth daily. Active cranberry fruit 450 mg tablet Take 450 mg by mouth daily. 3 Active MULTIVITAMIN ORAL Take 1 tablet by mouth 1 (one) time each day. 3 Active ascorbic acid, vitamin C, 500 mg capsule Take 1 Cap by mouth daily. Active biotin 1 mg tablet Take 1 tablet (1 mg total) by mouth 1 (one) time each day. Active B complex tablet Take 1 tablet by mouth 1 (one) time each day. Active melatonin 10 mg tablet Take 1 tablet (10 mg total) by mouth at bedtime. Active midodrine (PROAMATINE) 2.5 mg tabletIndication s:Orthostatic hypotension TAKE 1 TABLET BY MOUTH 3 TIMES DAILY FOR 30 DAYS. 270 tablet 3 5 Active mirtazapine (REMERON) 7.5 mg tablet Take 1 tablet (7.5 mg total) by mouth. at bedtime 5 Active DULoxetine (CYMBALTA) [address] capsule Take 1 capsule (30 mg total) by mouth 1 (one) time each day. Do not crush or chew. 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 She will get a shooting pain that is a 9 or 10/10. If she is sitting for a long time she will experience some back pain. She states she has no choice but to sit most of the time because of her other medical issues, including orthostatic hypotension, recent diagnosis of Parkinson's, shortness of breath with ambulating, right knee pain s/p total knee replacement October 12, 2021. She states she was supposed to have a knee replacement about 10 years ago, but circumstances and her family did not allow her to have surgery at that time. She was walking with her right lower extremity distorted, 24 degree angle in the lower leg where she was almost knock kneed, walking on the side of her foot for many years while awaiting her knee replacement surgery. At times she notes that the right foot will curl up/cramp. She states she gets pain on the medial and lateral right knee, behind the knee feels tight. She has seen orthopedics and had a second opinion, they tried using a knee brace, but the bars on the sides push on her area of pain and is not comfortable to wear. Her knee surgery did straighten the leg so she can walk a little better, however she does not feel it helped her knee pain. She was recently seen for physical therapy and given an orthotic shoe lift for the left shoe, they told her they could not continue the exercises she needed because of her Parkinson's disease. Patient had lumbar spine MRI 923 at [facility] that showed L3-4, L4-5 DJD and ligamentum flavum hypertrophy, L4-5 central disc bulging, no significant stenosis. Trace anteriolisthesis L5-S1. Report mentions right lateral recess stenosis at L5-S1, I did not see any significant nerve root compression or stenosis. Ms. Hernandez's right posterior leg pain radiating from the heel up to the buttock, tenderness over the right buttock and SI joint, she could have a component of pain from piriformis syndrome. We talked about stretching exercises she can do at home, she does not want to try physical therapy for SI joint pain and piriformis syndrome. We talked about acupuncture, she is interested in seeing Dr. Garcia again who she saw in the past for her knee. If needed possibly also trying right SI joint injection. I did not see any significant right-sided nerve root compression on her lumbar spine MRI, but I will review the films with Dr. Grimaldo and see if she recommends any surgical intervention. ADDENDUM 04/08/2023 4 PM: I reviewed patient's MRI lumbar spine with Dr. Grimaldo, she agrees that there is no nerve root compression, right lateral recess stenosis L5-S1. I called patient to give her an update, Dr. Grimaldo is not recommending surgical intervention at this time. Patient states she has been thinking about the physical therapy, would like to try it, we found a location close to her, information provided, PT order faxed over to [facility]. All questions answered. I asked her to call in a month or 2 with an update. Onychomycosis due to dermatophyte 04/08/2023 Orthostatic hypotension 03/26/2023 Overview (04/11/2024): Last Assessment & Plan: Patient is doing better with the discontinuation of the NIKKI inhibitor but she still complains of positional lightheadedness and is being scheduled for additional doses of Sinemet and a new medication which she has been told by her neurologist is good to drop her blood pressure. I think we should just proactively start 2.5 mg of midodrine 3 times daily prevent her from having any episodes of syncope or presyncope. She has been told that she may need to have this dose increased depending upon the effect of the additional Sinemet and her Parkinson meds. She is to give us a call if the symptoms worsen. As far as her blood sugar dropping she needs to talk to her primary team she has had a gastric bypass done and I suspect there is issues with absorption but unfortunately I am not able to sort those out right now and they need to be addressed by her primary team Angiodysplasia of colon with hemorrhage 10/08/19 23 Parkinson disease ([facility] V24, [facility] V28) 07/2022 Status post total right knee replacement 022 Murmur 09/22/2021 Overview (04/11/2024): Last Assessment & Plan: because of the orthostasis. Patient is mild aortic stenosis not contributing to orthostasis. Primary hypertension 09/22/2021 Overview (04/11/2024): Last Assessment & Plan: The patient has a history of primary hypertensionStopping her losartan secondary to the orthostasis. Shortness of breath 09/22/2021 Hyperlipidemia 11/29/2017 Limb pain 11/29/2017 Malignant tumor of colon ([facility] V24, [facility] V 28) 11/29/2017 Rash 11/29/2017 Urinary tract infection 11/24/2016 UTI symptoms 11/24/2016 Anemia 10/19/2016 Candidiasis 04/17/2016 Fatigue 03/28/2015 Chest pain 12/06/2014 Depression 12/06/2014 Joint pain, knee 12/06/2014 Localized osteoarthrosis, lower leg 04/19/2014 Edema 01/09/2014 Peripheral neuropathy 01/09/2014 Assessment & Plan (05/29/2024 12:52 PM EST): 2005 - s/p chemo. Esophageal reflux 08/09/2013 Insomnia 10/13/2012 Abnormal weight gain 06/25/2011 Backache 06/23/2011 Disc degeneration, lumbar 06/02/2010 Encounters Date Type Department Care Team Description 10/19/2024 12:45 PM EDT Office Visit Internal Medicine [address] [phone] Hyacinth Bashir MD Anemia, unspecified type (Primary Dx); Mixed hyperlipidemia; Need for vaccination against Streptococcus pneumoniae; Primary hypertension; Depression, unspecified depression type; Parkinson's disease, unspecified whether dyskinesia present, unspecified whether manifestations fluctuate ([facility] V24, [facility] V28) 10/18/2024 Telephone Internal Medicine [address] [phone] Enrique Limon [place] Appointment Reminder from Last 3 Months Immunizations Name Administration Dates Next Due Influenza trivalent, 0.5mL ( Fluad) 65yo and older 02/08/2019,02/04/2018,02/25/2017,04/06,03/17/2016,02/18/2015,02/22/2014 Influenza trivalent, 0.5mL, preservative free (Fluarix; FluLaval; Fluzone) ages 6mo and older (Afluria) 3 years and older 02/19/2020 Influenza, Unspecified 02/19/2022 Pfizer SARS-CoV-2 COVID-19, mRNA, LNP-S, preservative free 02/19/2022 Pneumococcal conjugate 13 va lent (Prevnar 13, PCV13) 2mo and older 04/16/2016 Pneumococcal conjugate 20 va lent (Prevnar 20, PCV 20) 2mo and older 10/19/2024 Pneumococcal polysaccharide 23 valent (Pneumovax 23) 2yo and older 04/16/2015,02/02/2007 Surgical History Surgery Date Site/Laterality Comments HYSTERECTOMY PROCEDURE: HISTORICAL HYSTERECTOMY SHOULDER SURGERY PROCEDURE: HISTORICAL SHOULDER SURGERY; COMMENT: Rotator cuff repair OTHER SURGICAL HISTORY 05/2005 PROCEDURE: NE LAPAROSCOPY COLECTOMY PARTIAL W/ANASTOMOSIS; COMMENT: Colon cancer TOTAL KNEE ARTHROPLASTY 10/12/2021 Right PROCEDURE: HISTORICAL TOTAL KNEE REPLACE OTHER SURGICAL HISTORY 2002 PROCEDURE: HISTORY OTHER; COMMENT: Gastric bypass Medical History Medical History Date Comments Essential hypertension DX:Essent ial hypertension Orthostatic hypotension 03/26/2023 DX:Ortho static hypotension Hyperlipidemia 11/29/2017 DX:Hyperlipidemi a Esophageal reflux 08/09/2013 DX:Esophageal reflux Malignant tumor of colon ( S/HCC V24, [facility] V28) 11/29/2017 DX:Malignant tumor of colon (HCC) Parkinson disease ([facility] V 24, [facility] V28) 09/09/2022 DX:Parkinson disease ([facility]) Peripheral neuropathy 01/09/2014 DX:Periphe ral neuropathy Depression 12/06/2014 DX:Depression Status post total right knee replacement 11/04/2021 DX:Status post total right k nee replacement Rheumatoid arthritis ([facility] V24, [facility] V28) DX:Rheumatoid arthritis ([facility] ) Family History Medical History Relation Name Comments Heart attack Father Heart attack Mother Hyperlipidemia Mother Other: atrial fibrillation Mother Relation Name Status Comments Father Mother Social History Tobacco Use Types Packs/Day Years Used Date Smoking Tobacco: Former Cigarettes 0.3 61 S tarted: 11/08/1963 Smokeless Tobacco: Never Tobacco Cessation:Counseling Given: Not Answered Alcohol Use Standard Drinks/Week Comments No 0 (1 standard drink = 0.6 oz pur e alcohol) Comments Unknown Sex and Gender Information Value Date Recorded Sex Assigned at Female 06/02/2024 6:49 AM EST Legal Sex Female 6:47 PM EST Gender Identity Female 06/02/2024 6:49 AM EST Sexual Orientation Straight 06/02/2024 6: 49 AM EST Obstetrics History Last Filed Vital Signs Vital Sign Reading Time Taken Comments Blood Pressure 144/84 10/19/2024 12:49 PM EDT Pulse 85 10/19/2024 12:49 PM EDT Temperature 36.9 C (98.4 F) 10/19/2024 12:49 PM EDT Respiratory Rate 16 06/02/2024 8:18 AM EST Oxygen Saturation 98% 10/19/2024 12:49 PM EDT Inhaled Oxygen Concentration - - Weight 67.1 kg (148 lb) 10/19/2024 12:49 PM EDT Height 162.6 cm (5' 4 ) 10/19/2024 12:49 PM EDT Body Mass Index 25.4 10/19/2024 12:49 PM EDT Plan of Treatment Upcoming Encounters Date Type Department Care Team (Late st Contact Info) Description 03/26/2025 11:30 AM EST Office Visit Internal Medicine - [place] [address] [facility] [address] [place] [phone] Hyacinth Bashir MD [address] [facility] [facility] [address] [place] [phone] Health Maintenance Due Date Last Done Comments DTaP,Tdap,and Td Vaccines (1 - Tdap) 1959 Zoster Vaccines (1 of 2) 1959 Medicare Annual Wellness Visit 04/11/2022 Osteoporosis Screening (Bone Density Screening) 04/11/2022 Social Influencers of Health Screening 04/11/2022 COVID-19 Vaccine (7 - Pfizer risk season) 2024 02/20/2024, 02/26/2023, 02/19/2022, Additional history exists Depression Screening 01/16/2025 01/17/2024 Falls Risk Assessment 01/16/2025 01/17/2024 Cholesterol Screening (Lipid Panel) 07/31/2025 07/31/2020 Hypertension/CHF/CAD Annual BMP Blood Test 10/19/2025 10/19/2024, 01/17/2024, 01/17/2024 Influenza Vaccine Completed 02/20/2024, , 02/19/2022, Additional history exists RSV Immunization Adult Patients Completed 03/13/2024, 02/26/2023 Pneumococcal Vaccine: 50+ Years Completed 10/19/2024, 04/16/2016, 04/16/2015, Additional history exists HIB Vaccines Aged Out No longer eligi ble based on patient's age to complete this topic HPV Vaccines Aged Out No longer eligi ble based on patient's age to complete this topic Hepatitis A Vaccines Aged Out No long er eligible based on patient's age to complete this topic Hepatitis B Vaccines Aged Out No long er eligible based on patient's age to complete this topic IPV Vaccines Aged Out No longer eligi ble based on patient's age to complete this topic MMR Vaccines Aged Out No longer eligi ble based on patient's age to complete this topic Meningococcal ACWY Vaccine Aged Out N o longer eligible based on patient's age to complete this topic Meningococcal B Vaccine Aged Out No l onger eligible based on patient's age to complete this topic RSV Immunization Patients Under 20 months Aged Out No longer eligible based on patient's age to complete this topic Varicella Vaccines Aged Out No longer eligible based on patient's age to complete this topic Procedures Procedure Name Priority Date/Time Associated Diagnosis Comments COMPREHENSIVE METABOLIC PANEL Routine 10/19/2024 1:22 PM EDT Anemia, unspecified type Mixed hyperlipidemia DEPRESSION SCREENING Routine 01/17/2024 FALLS RISK ASSESSMENT Routine 01/17/2024 LIPID PANEL Routine 07/31/2020 from Last 3 Months or Most Recently Relevant to Health Maintenance Results * Comprehensive metabolic panel (10/19/2024 1:22 PM EDT) Sodium 137 133 - 145 mmol/L LAB CHEMISTRY METHOD 10/19/2024 3:[address] [facility] Potassium 4.2 3.5 - 5.5 mmol/L LAB CHEMISTRY METHOD 10/19/2024 3:[address] [facility] Chloride 103 96 - 110 mmol/L LAB CHEMISTRY METHOD 10/19/2024 3:[address] [facility] CO2 28 21 - 32 mmol/L LAB CHEMISTRY METHOD 10/19/2024 3:[address] [facility] Anion Gap 6 3 - 11 LAB CHEMISTRY METHOD 10/19/2024 3:[address] [facility] Glucose 98 70 - 100 mg/dL LAB CHEMISTRY METHOD 10/19/2024 3:[address] [facility] BUN 13 5 - 25 mg/dL LAB CHEMISTRY METHOD 10/19/2024 3:[address] [facility] Creatinine 0.71 0.50 - 1.10 mg/dL LAB CHEMISTRY METHOD 10/19/2024 3:[address] [facility] eGFR 85 >=60 mL/min/1. 73m2 LAB CHEMISTRY METHOD 10/19/2024 3:[address] [facility] Comment:Calculation based on the Chronic Kidney Disease Epidemiology Collaboration (CKD-EPI) equation refit without adjustment for race. BUN/Creatinine Ratio 18.3 LAB CHEMISTRY METHOD 10/19/2024 3:[address] [facility] Calcium 8.9 8.5 - 10.5 mg/dL LAB CHEMISTRY METHOD 10/19/2024 3:[address] [facility] AST (SGOT) 18 10 - 42 unit/L LAB CHEMISTRY METHOD 10/19/2024 3:[address] [facility] ALT (SGPT) 13 10 - 60 unit/L LAB CHEMISTRY METHOD 10/19/2024 3:[address] [facility] Alkaline Phosphatase 112 42 - 121 unit/L LAB CHEMISTRY METHOD 10/19/2024 3:16 PM EDT [facility] Total Protein 7.0 6.0 - 8.0 g/dL LAB CHEMISTRY METHOD 10/19/2024 3:16 PM EDT [facility] Albumin 3.8 3.2 - 5.0 g/dL LAB CHEMISTRY METHOD 10/19/2024 3:16 PM EDT [facility] Total Bilirubin 0.4 0.0 - 1.4 mg/dL LAB CHEMISTRY METHOD 10/19/2024 3:16 PM EDT [facility] Blood Venous blood specimen / Unknown Venipuncture / Unknown 10/19/2024 1:22 PM EDT 10/19/2024 1:22 PM EDT Hyacinth Bashir MD LAB BLOOD ORDERABLES Final Res ult [facility] [address] [place] [address], * Falls Risk Assessment (01/17/2024) Pathologist [facility] Falls Risk Assessment abstracted Historical Provider HEALTH MAINTENANCE Final Result * Depression Screening (01/17/2024) Pathologist [facility] Depression Screening abstracted Historical Provider HEALTH MAINTENANCE Final Result * (ABNORMAL) Lipid panel (07/31/2020) Pathologist [facility] LDL/HDL Ratio 3 0 - 4 Triglycerides 168(A) 0 - 150 mg/dL Cholesterol 177 0 - 200 mg/dL HDL 58 >=40 mg/dL LDL Cholesterol 86 0 - 100 mg/dL Blood Venous blood specimen / Unknown Historical Provider LAB BLOOD ORDERABLES Bridget l Result from Last 3 Months or Most Recently Relevant to Health Maintenance Insurance MEDICARE [facility] Care Teams Yarn Dumper Relationship Specialty Start Date End Date Hyacinth Bashir MD [address] [facility] [address] [place] [phone] PCP - General Internal Medicine 04/25/18
== END 2024-10-31 14:39 | disposition home or self-care (01) ==
LOC: HO.HSMS 14:04
PROVIDERS: PCP Internal Medicine; Visit Provider Psychiatry & Neurology Neurology
DX: G90.3 Multi-system degeneration of the autonomic nervous system (principal)
CPT/HCPCS: 99214; G2211

== ENCOUNTER → 2024-10-31 14:03 | Outpatient (BNVA) | payer MEDICARE, OTHER, SELFPAY | PROVIDERS: PCP Internal Medicine; Visit Provider Psychiatry & Neurology Neurology | DX: G90.3 Multi-system degeneration of the autonomic nervous system (principal) | CPT/HCPCS: 99212 ==